=== PATIENT | male | born 1950 | race Caucasian/White ===

== ENCOUNTER 2019-01-27 09:18 | Outpatient (CLI) | payer OTHER ==
[~2019-01-27 09:18] MED LIST: CLON-528 PO; LAMO100T PO; OLAN20TA34 PO; OMEP-84 PO
== END 2019-01-27 23:59 | disposition home or self-care (01) ==
LOC: RAD 09:18
PROVIDERS: ATTEND Specialist
DX: S52.031A Displaced fracture of olecranon process with intraarticular extension of right ulna, initial encounter for closed fracture (principal); M25.421 Effusion, right elbow; X58.XXXA Exposure to other specified factors, initial encounter; Y93.89 Activity, other specified; Y92.89 Other specified places as the place of occurrence of the external cause; Y99.8 Other external cause status
CPT/HCPCS: 73221